=== PATIENT | male | born 2005 | race Caucasian/White ===

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

== ENCOUNTER 2024-04-16 00:20 | Emergency (ER) | payer OTHER ==
[2024-04-16 00:29] VITALS: RESP 18; TEMP 98.6
[2024-04-16] MEDS: KETOROLAC 15 MG/ML 1 ML VIAL IM STA (00:51)
--- NOTE | 2024-04-16 03:04 | ED ---
Lower Extremity Injury HPI - General Chief Complaint: Extremity Injury, Lower Stated Complaint: Left Knee Injury Time Seen by Provider: 04/16/24 00:30 Source: patient Mode of arrival: wheelchair - History of Present Illness Initial Comments: 18-year-old male presenting with chief complaint of left knee pain. Patient was playing football when he injured the knee. Pain is mainly over the lateral portion of the knee. States that he is unable to weight-bear on this knee. He has increased pain with straightening of the knee. No obvious deformity. No history of previous knee injury - Related Data Allergies Allergy/AdvReac Type Severity Reaction Status Date / Time No Known Allergies Allergy Verified 04/16/24 00:30 Review of Systems ROS Statement: Those systems with pertinent positive or pertinent negative responses have been documented in the HPI. ROS Other: All systems not noted in ROS Statement are negative. General Exam General appearance: alert, in no apparent distress Head exam: Present: atraumatic, normocephalic, normal inspection Eye exam: Present: normal appearance Neck exam: Present: normal inspection Respiratory exam: Absent: respiratory distress Cardiovascular Exam: Present: regular rate Left Knee exam: Present: normal inspection, tenderness. Absent: full ROM, swelling Neurological exam: Present: alert, oriented X3 Psychiatric exam: Present: normal affect, normal mood Skin exam: Present: warm, dry, normal color Course Vital Signs 04/16/24 04/16/24 00:25 03:15 Temperature 98.6 F Pulse Rate 82 85 Respiratory 18 18 Rate Blood Pressure 133/81 115/79 O2 Sat by Pulse 100 98 Oximetry Medical Decision Making - Medical Decision Making Was pt. sent in by a medical professional or institution ([facility] Umanzor, STATUARY PAINTER, urgent care, hospital, or senior care...) When possible be specific @ -No Did you speak to anyone other than the patient for history (EMS, parent, family, police, friend...)? What history was obtained from this source @ -No Did you review nursing and triage notes (agree or disagree)? Why? @ -I reviewed and agree with nursing and triage notes Were old charts reviewed (outside hosp., previous admission, EMS record, old EKG, old radiological studies, urgent care reports/EKG's, senior care records)? Report findings @ -No old charts were reviewed Differential Diagnosis (chest pain, altered mental status, abdominal pain women, abdominal pain men, vaginal bleeding, weakness, fever, dyspnea, syncope, headache, dizziness, GI bleed, back pain, seizure, CVA, palpatations, mental health, musculoskeletal)? @ -Differential includes fracture, dislocation, sprain, strain, this is not an all-inclusive list EKG interpreted by me (3pts min.). @ -As above X-rays interpreted by me (1pt min.). @ -Preliminary report shows no obvious fracture or dislocation. Final report is still pending CT interpreted by me (1pt min.). @ -None done U/S interpreted by me (1pt. min.). @ -None done What testing was considered but not performed or refused? (CT, X-rays, U/S, labs)? Why? @ -None What meds were considered but not given or refused? Why? @ -None Did you discuss the management of the patient with other professionals (professionals i.e. , PA, STATUARY PAINTER, lab, RT, psych nurse, mental health social worker, plastic eye technician, teacher, field crop technical officer, home health care case manager)? Give summary @ -No Was smoking cessation discussed for >3mins.? @ -No Was critical care preformed (if so, how long)? @ -No Were there social determinants of health that impacted care today? How? (Homelessness, low income, unemployed, alcoholism, drug addiction, transportation, low edu. Level, literacy, decrease access to med. care, senior care, rehab)? @ -No Was there de-escalation of care discussed even if they declined (Discuss DNR or withdrawal of care, Hospice)? DNR status @ -No What co-morbidities impacted this encounter? (DM, HTN, Smoking, COPD, CAD, Cancer, CVA, ARF, Chemo, Hep., AIDS, mental health diagnosis, sleep apnea, morbid obesity)? @ -None Was patient admitted / discharged? Hospital course, mention meds given and route, prescriptions, significant lab abnormalities, going to OR and other pertinent info. @ -18-year-old male presenting chief complaint of left knee injury. Neurovascularly intact. Pain mainly over the lateral portion of the knee. No obvious fracture or dislocation on the x-ray, formal report is pending. Patient is placed in a knee immobilizer provided with crutches and instructed to follow- up with orthopedics. Educated on supportive management at home. Discharged. Follow-up with PCP. Report back to ER with any new or worsening symptoms. Discussed return parameters and answered all questions. Patient conveyed verbal understanding and agreed to the plan. I discussed this case in detail with my attending Dr. Ayala Undiagnosed new problem with uncertain prognosis? @ -No Drug Therapy requiring intensive monitoring for toxicity (Heparin, Nitro, Insulin, Cardizem)? @ -No Were any procedures done? @ -No Diagnosis/symptom? @ -Knee sprain Acute, or Chronic, or Acute on Chronic? @ -Acute Uncomplicated (without systemic symptoms) or Complicated (systemic symptoms)? @ -Uncomplicated Side effects of treatment? @ -No Exacerbation, Progression, or Severe Exacerbation? @ -No Poses a threat to life or bodily function? How? (Chest pain, [place], [place], pneumonia, PE, COPD, DKA, ARF, appy, cholecystitis, CVA, Diverticulitis, Homicidal, Suicidal, threat to staff... and all critical care pts) @ -No Disposition Clinical Impression: Knee sprain Disposition: HOME SELF-CARE Condition: Good Instructions (If sedation given, give patient instructions): Knee Sprain (ED) Additional Instructions: Follow-up with orthopedics. Report back to ER with any new or worsening symptoms. Alternate Motrin and Tylenol as needed for pain control. Rest, ice, elevate the knee. Remain nonweightbearing and utilize your knee immobilizer Is patient prescribed a controlled substance at d/c from ED?: No Referrals: Thomas Connors MD [Primary Care Provider] - 1-2 days Amado Vaca MD [STAFF PHYSICIAN] - 1-2 days Time of Disposition: 03:04
[2024-04-16 03:16] VITALS: BP 115/79; PULSE 85
--- NOTE | 2024-04-16 03:49 | XR ---
EXAM: XR Left Knee, 3 Views CLINICAL HISTORY: ITS.REASON XR Reason: injury TECHNIQUE: Three views of the left knee. COMPARISON: No relevant prior studies available. FINDINGS: Bones/joints: No acute fracture. No dislocation. Soft tissues: Unremarkable. IMPRESSION: No acute osseous abnormalities.
== END 2024-04-16 03:17 | disposition home or self-care (01) ==
LOC: EC 00:20
CPT/HCPCS: 96372; 99283